=== PATIENT | female | born 1965 | race Caucasian/White ===

== ENCOUNTER → 2017-08-23 | Outpatient (CLI) | payer OTHER ==
[~2017-08-23] MED LIST: AMLO5; Adipex-P37.5 MG PO; Alprazolam0.25 MG PO; Aspir-Low81 MG PO; Atenolol50 MG PO; BENA10; CITA20; CYCL10 PO; Celexa40 MG PO; ESTR2 PO; Flovent Diskus50 MCG IH; GABA300 PO; GLIM2; Glimepiride4 MG PO; HYDACE10B; HYDCHL25; Hydrochlorothia25 MG PO; Imitrex100 MG PO; Lotensin40 MG PO; MAGOXI400 PO; METF500C; METH10 PO; Percocet 10-321 EACH PO; TRAVER4240; VITAMIN D32000 UNI1 PO; ZOLP10 PO
[2017-08-23 17:25] LABS: U Amphetamine Screen Not Detected; U Barbituate Screen Not Detected; U Benzodiazapine Screen Not Detected; U Buprenorphine Screen Not Detected; U Cannabinoids Screen Not Detected; U Cocaine Screen Not Detected; U Methadone Screen DETECTED; U Methamphetamine Screen Not Detected; U Opiates Screen Not Detected; U Oxycodone Screen DETECTED; U Phencyclidine Screen Not Detected; U Propoxyphene Screen Not Detected
[2017-08-25 13:50] LABS: Methadone Metab. by GC/MS 406 ng/mL (NOTDET)
[2017-08-26 09:30] LABS: Codeine Not Detected (NOTDET); Hydrocodone Not Detected (NOTDET); Hydromorphone Not Detected (NOTDET); Morphine Not Detected (NOTDET); Norhydrocodone Not Detected (NOTDET); Noroxycodone 976 ng/mL (NOTDET)
== END | disposition home or self-care (01) ==
LOC: LAB SHORT 17:01
PROVIDERS: Internal Medicine
DX: Z51.81 Encounter for therapeutic drug level monitoring (principal); Z79.899 Other long term (current) drug therapy
CPT/HCPCS: G0480

== ENCOUNTER → 2018-06-26 | Outpatient (CLI) | payer OTHER | LOC: LAB 10:12 → LAB SHORT 10:12 | DX: R35.0 Frequency of micturition (principal); R30.0 Dysuria | CPT/HCPCS: 87086 ==

== ENCOUNTER → 2019-08-21 | Outpatient (CLI) | payer OTHER ==
[2019-08-21 21:12] LABS: U Amphetamine Screen DETECTED; U Barbituate Screen Not Detected; U Benzodiazapine Screen Not Detected; U Buprenorphine Screen Not Detected; U Cannabinoids Screen Not Detected; U Cocaine Screen Not Detected; U Methadone Screen DETECTED; U Methamphetamine Screen Not Detected; U Opiates Screen Not Detected; U Oxycodone Screen DETECTED; U Propoxyphene Screen Not Detected
== END | disposition home or self-care (01) ==
LOC: LAB 12:00 → LAB SHORT 12:00
PROVIDERS: Nurse Practitioner Family
DX: Z51.81 Encounter for therapeutic drug level monitoring (principal); Z79.891 Long term (current) use of opiate analgesic